=== PATIENT | female | born 1960 | race Caucasian/White ===

== ENCOUNTER 2020-02-04 10:46 | Inpatient (IN) | payer MEDICARE ==
[~2020-02-04] VITALS: Ht 162.6 cm; Wt 111.0 kg
[2020-02-04] MEDS ORDERED: aspirin 81mg tab.chew PO ONE (11:25)
--- NOTE | 2020-02-04 11:30 | NUR ---
To CT scan via w/c.
[2020-02-04 11:37] LABS: LYMPHOCYTES # (AUTO) 1.8 X10'3 (1.1-4.8)
[2020-02-04 11:39] LABS: BASOPHILS # (AUTO) 0.1 X10'3 (0-0.2); BASOPHILS % (AUTO) 0.7 % (0-1); EOSINOPHILS # (AUTO) 0.1 X10'3 (0-0.9); EOSINOPHILS % (AUTO) 0.7 % (0-6); HEMATOCRIT 50.9 % (35.0-45.0); LYMPHOCYTES % (AUTO) 19.1 % (21-51); MEAN CORPUSCULAR HEMOGLOBIN 31.7 PG (27.0-31.0); MEAN CORPUSCULAR HGB CONC 33.5 g/dL (33.0-36.5); MEAN CORPUSCULAR VOLUME 94.6 FL (78-98); MEAN PLATELET VOLUME 8.1 FL (7.4-10.4); MONOCYTES # (AUTO) 0.4 X10'3 (0-0.9); MONOCYTES % (AUTO) 3.7 % (2-12); NEUTROPHILS # (AUTO) 7.3 X10'3 (1.8-7.7); NEUTROPHILS % (AUTO) 75.8 % (42-75); PLATELET COUNT 378 X10'3 (140-440); RED BLOOD COUNT 5.38 X10'6 (4.20-5.60); RED CELL DISTRIBUTION WIDTH 15.1 % (11.5-14.5); WHITE BLOOD COUNT 9.7 X10'3 (4.5-11.0)
--- NOTE | 2020-02-04 11:45 | NUR ---
Return from CT scan, via w/c
[2020-02-04 11:48] LABS: ALANINE AMINOTRANSFERASE 19 U/L (12-78); ALKALINE PHOSPHATASE 108 IU/L (46-116); ANION GAP 10 (8-16); ASPARTATE AMINO TRANSFERASE 19 U/L (10-37); BILIRUBIN,TOTAL 0.6 MG/DL (0.1-1.0); BLOOD UREA NITROGEN 13 MG/DL (7-18); BUN/CREATININE RATIO 10.1 (6.6-38.0); CALCIUM 10.4 MG/DL (8.5-10.1); CHLORIDE 104 MMOL/L (99-107); CREATININE 1.29 MG/DL (0.40-0.90); GLUCOSE 137 MG/DL (70-104); POTASSIUM 4.4 MMOL/L (3.5-5.1); SODIUM 137 MMOL/L (135-145); TOTAL CARBON DIOXIDE 22.7 MMOL/L (24-32); TOTAL PROTEIN 8.1 G/DL (6.4-8.2); eGFR 42 ML/MIN
[2020-02-04] MEDS ORDERED: iohexol 350MG/ML 100ml bottle IV ONE (13:19)
--- NOTE | 2020-02-04 13:25 | NUR ---
Pt transported back to CT scan for CTA. Transported via gurney with the side rails raised.
[2020-02-04] MEDS ORDERED: IBUP-1985 PO (13:54)
[2020-02-04] MEDS ORDERED: LEVO112T5 PO (13:54)
[2020-02-04] MEDS ORDERED: SERT100T10 PO (13:54)
[2020-02-04] MEDS ORDERED: LISI-600 PO (13:54)
[2020-02-04] MEDS ORDERED: pneumococcal 23-VAL P-sac vacc 25 mcg/0.5ml vial IMVAC ONE (14:10)
[2020-02-04] MEDS ORDERED: potassium CL 10mEq/100ml bag 100 ML IV PRN ×2 (14:30)
[2020-02-04] MEDS ORDERED: magnesium Cl slow-release 64mg tablet PO PRN (14:30)
[2020-02-04] MEDS ORDERED: magnesium hydroxide 30ml (MOM) UD suspension PO PRN (14:30)
[2020-02-04] MEDS ORDERED: bisacodyl 10mg suppository rectal RC PRN (14:30)
[2020-02-04] MEDS ORDERED: diphenhydrAMINE 25mg capsule PO PRN (14:30)
[2020-02-04] MEDS ORDERED: ondansetron/PF 4mg/2ml inj IV PRN (14:30)
[2020-02-04] MEDS ORDERED: acetaminophen 650mg rectal suppository RC PRN (14:30)
[2020-02-04] MEDS ORDERED: potassium Cl 20 mEq SR tablet PO PRN ×2 (14:30)
[2020-02-04] MEDS ORDERED: magnesium 2GM in 50ml NS 50 ML IV PRN (14:30)
[2020-02-04] MEDS ORDERED: morphine 2 MG/ML inj. syringe IV PRN ×2 (14:30)
[2020-02-04] MEDS ORDERED: HYDROcodone/acetaminophen 10/325mg tab PO PRN (14:30)
[2020-02-04] MEDS ORDERED: mag hydrox/Alum hydrox/simeth 30ml oral suspension PO PRN (14:30)
[2020-02-04] MEDS ORDERED: acetaminophen 325mg tablet PO PRN (14:30)
[2020-02-04] MEDS ORDERED: magnesium 4gm in 100ml NS 100 ML IV PRN (14:30)
[2020-02-04] MEDS ORDERED: HYDROcodone/acetaminophen 5mg/325mg tablet PO PRN (14:30)
[2020-02-04] MEDS ORDERED: atorvastatin 20mg tablet PO SCH (14:30)
[2020-02-04 14:58] LABS: CLARITY,URINE CLOUDY (Clear); COLOR,URINE YELLOW (Yellow); GLUCOSE, URINE NEGATIVE (Neg); KETONES,URINE NEGATIVE (Neg); LEUKOCYTE ESTERASE ,URINE NEGATIVE (Neg); NITRITES, URINE POSITIVE (Neg); OCCULT BLOOD,URINE TRACE-INTACT (Neg); PH,URINE 5.5 (4.8-8.0); PROTEIN,URINE NEGATIVE (Neg); UROBILINOGEN,URINE 0.2 E.U/dL (0.2-1.0)
[2020-02-04 14:59] LABS: UA COLLECTION TYPE CLN CATCH MIDSTREAM
[2020-02-04 15:03] LABS: BACTERIA,URINE 4+ /HPF (Neg); MUCUS STRANDS FEW /LPF (Neg); SQUAMOUS EPITHELIAL CELL,UR MANY /LPF (FEW)
[2020-02-04 15:04] LABS: HYALINE CASTS 0-3 /LPF (NEGATIVE); RBC,URINE 0-2 /HPF (0-2); WBC,URINE 0-4 /HPF (0-4)
[2020-02-04 15:12] LABS: URINE AMPHETAMINE SCREEN NEGATIVE (Neg); URINE BARBITUATE SCREEN NEGATIVE (Neg); URINE BENZODIAZEPINES SCREEN NEGATIVE (Neg); URINE CANNABINOID SCREEN POSITIVE (Neg); URINE COCAINE SCREEN NEGATIVE (Neg); URINE METHADONE SCREEN NEGATIVE (Neg); URINE OPIATE SCREEN NEGATIVE (Neg); URINE PHENCYCLIDINE SCREEN NEGATIVE (Neg)
[2020-02-04 15:28] LABS: CHOL/HDL RATIO 6.2 (0.00-4.99); CHOLESTEROL 261 MG/DL (0-200); HDL CHOLESTEROL 42 MG/DL (35-60); HEMOGLOBIN A1C 5.7 % (4.5-6.2); LDL CHOLESTEROL 195 MG/DL (50-100); TRIGLYCERIDES 80 MG/DL (20-135)
[2020-02-04 17:00] VITALS: BP 185/70
[2020-02-04] MEDS: normal saline 1000ml 1,000 ML IV SCH (17:14)
--- NOTE | 2020-02-04 17:31 | NUR ---
pathology lab technician in room at time of attempt to administer pneumonia vaccine, patient wants vaccine at a later time.
[2020-02-04 18:00] VITALS: BP 178/114
--- NOTE | 2020-02-04 18:43 | NUR ---
Problems reprioritized. Patient report given, questions answered & plan of care reviewed with Vanessa GARCIA.
--- NOTE | 2020-02-04 18:43 | NUR ---
Patient in room PCU 3020. I have received report from Haeven GARCIA and had the opportunity to ask questions and assume patient care.
--- NOTE | 2020-02-04 19:35 | NUR ---
Pagebarbara PALOMO about 11 beat of PVC's. Back to Afib/Aflutter controlled rate.
[2020-02-04] MEDS: K and/or MAG REPLACEMENT MC SCH (19:54)
[2020-02-04] MEDS ORDERED: heparin, porcine 5000 units/ml vial SQ SCH (20:00)
[2020-02-04 22:00] VITALS: BP 149/107
[2020-02-04] MEDS ORDERED: atorvastatin 20mg tablet PO ONE (23:35)
[2020-02-04] MEDS: clopidogrel 75mg tablet PO SCH (23:51)
[2020-02-05] MEDS: CefTRIAXone/D5W-Rocephin 1gm 50 ML IV SCH ×2 (00:34→22:25)
[2020-02-05 02:00] VITALS: BP 186/91
[2020-02-05] MEDS: normal saline 1000ml 1,000 ML IV SCH ×2 (05:20→21:27)
[2020-02-05 06:00] VITALS: BP 175/90
[2020-02-05 06:00] LABS: BASOPHILS # (AUTO) 0.1 X10'3 (0-0.2); EOSINOPHILS # (AUTO) 0.2 X10'3 (0-0.9); EOSINOPHILS % (AUTO) 1.8 % (0-6); HEMOGLOBIN 15.8 g/dl (12.0-16.0); LYMPHOCYTES # (AUTO) 2.4 X10'3 (1.1-4.8); MEAN CORPUSCULAR HEMOGLOBIN 31.6 PG (27.0-31.0); MEAN CORPUSCULAR HGB CONC 33.6 g/dL (33.0-36.5); MEAN CORPUSCULAR VOLUME 93.9 FL (78-98); MEAN PLATELET VOLUME 7.8 FL (7.4-10.4); MONOCYTES # (AUTO) 0.6 X10'3 (0-0.9); MONOCYTES % (AUTO) 6.8 % (2-12); NEUTROPHILS # (AUTO) 5.6 X10'3 (1.8-7.7); NEUTROPHILS % (AUTO) 63.4 % (42-75); PLATELET COUNT 309 X10'3 (140-440); RED CELL DISTRIBUTION WIDTH 14.9 % (11.5-14.5); WHITE BLOOD COUNT 8.9 X10'3 (4.5-11.0)
--- NOTE | 2020-02-05 06:20 | NUR ---
Patient in room PCU 3020. I have received report from [facility] and had the opportunity to ask questions and assume patient care.
--- NOTE | 2020-02-05 06:44 | NUR ---
Problems reprioritized. Patient report given, questions answered & plan of care reviewed with Jaquelin GARCIA.
[2020-02-05 06:46] LABS: ALANINE AMINOTRANSFERASE 14 U/L (12-78); ALBUMIN 3.5 G/DL (3.4-5.0); ALKALINE PHOSPHATASE 96 IU/L (46-116); ANION GAP 9 (8-16); ASPARTATE AMINO TRANSFERASE 17 U/L (10-37); BILIRUBIN,TOTAL 0.5 MG/DL (0.1-1.0); BLOOD UREA NITROGEN 12 MG/DL (7-18); BUN/CREATININE RATIO 11.4 (6.6-38.0); CALCIUM 10.4 MG/DL (8.5-10.1); CHLORIDE 107 MMOL/L (99-107); CREATININE 1.05 MG/DL (0.40-0.90); GLUCOSE 91 MG/DL (70-104); MAGNESIUM 2.3 MG/DL (1.5-2.4); PHOSPHORUS 3.1 MG/DL (2.3-4.5); POTASSIUM 4.1 MMOL/L (3.5-5.1); SODIUM 139 MMOL/L (135-145); TOTAL CARBON DIOXIDE 23.3 MMOL/L (24-32); TOTAL PROTEIN 7.1 G/DL (6.4-8.2); eGFR 53 ML/MIN
[2020-02-05] MEDS: K and/or MAG REPLACEMENT MC SCH ×2 (07:10→19:32)
--- NOTE | 2020-02-05 07:50 | NUR ---
PAGER ID: [phone] MESSAGE: Jaquelin Valerio on PCU, for Ms. Killian in 3020, pt allowed permissive HTN, order for lisinopril this am, shall we hold it? AM BP was 175/90 thank you #[phone] or [phone]
[2020-02-05] MEDS: acetaminophen 325mg tablet PO PRN ×2 (09:46→15:33)
[2020-02-05] MEDS: aspirin 81mg tablet.DR PO SCH (09:47)
[2020-02-05] MEDS: clopidogrel 75mg tablet PO SCH (09:47)
[2020-02-05] MEDS: levoTHYROXINE 112mcg tablet PO SCH (09:47)
[2020-02-05] MEDS: atorvastatin 20mg tablet PO SCH (09:47)
[2020-02-05] MEDS: sertraline 50mg tablet PO SCH (09:48)
[2020-02-05] MEDS: apixaban 5mg tablet PO SCH ×2 (09:48→19:34)
[2020-02-05 11:00] VITALS: BP 165/100
[2020-02-05] MEDS ORDERED: iohexol 300mg/ml 100ml inj. ONE (11:07)
--- NOTE | 2020-02-05 12:13 | NUR ---
PAGER ID: [phone] MESSAGE: Jaquelin Valerio on U, for Ms. Killian in 4020, last BP was 165/100, would you like the lisinopril to be given? #[phone], thank you Addendum: 02/05/20 at 1215 by Jaquelin Scruggs RN MD devonte corado. Addendum: 02/05/20 at 1215 by Jaquelin Scruggs RN caden Calero to give lisinopril
[2020-02-05] MEDS: lisinopril 20mg tablet PO SCH (12:45)
[2020-02-05 18:00] VITALS: BP 144/74
--- NOTE | 2020-02-05 18:08 | NUR ---
Problems reprioritized. Patient report given, questions answered & plan of care reviewed with Tawnya.
[2020-02-05] MEDS: lactobacillus rhamnosus 10,000 MMU CELLS/CAPSULE PO SCH (19:33)
[2020-02-05 22:00] VITALS: BP 146/89
[2020-02-06 02:00] VITALS: BP 132/63
[2020-02-06 06:00] VITALS: BP 126/90
--- NOTE | 2020-02-06 06:00 | NUR ---
Patient in room PCU 3020. I have received report from JOSE Cordova and had the opportunity to ask questions and assume patient care.
--- NOTE | 2020-02-06 06:19 | NUR ---
Problems reprioritized. Patient report given, questions answered & plan of care reviewed with JOSE Pavon.
[2020-02-06] MEDS: normal saline 1000ml 1,000 ML IV SCH (06:26)
[2020-02-06 07:49] LABS: BASOPHILS # (AUTO) 0.1 X10'3 (0-0.2); BASOPHILS % (AUTO) 0.6 % (0-1); EOSINOPHILS # (AUTO) 0.1 X10'3 (0-0.9); EOSINOPHILS % (AUTO) 1.5 % (0-6); HEMATOCRIT 44.1 % (35.0-45.0); HEMOGLOBIN 15.2 g/dl (12.0-16.0); LYMPHOCYTES # (AUTO) 1.7 X10'3 (1.1-4.8); LYMPHOCYTES % (AUTO) 18.5 % (21-51); MEAN CORPUSCULAR HGB CONC 34.4 g/dL (33.0-36.5); MEAN CORPUSCULAR VOLUME 92.9 FL (78-98); MEAN PLATELET VOLUME 7.9 FL (7.4-10.4); MONOCYTES # (AUTO) 0.7 X10'3 (0-0.9); MONOCYTES % (AUTO) 7.3 % (2-12); NEUTROPHILS # (AUTO) 6.8 X10'3 (1.8-7.7); NEUTROPHILS % (AUTO) 72.1 % (42-75); PLATELET COUNT 327 X10'3 (140-440); RED BLOOD COUNT 4.75 X10'6 (4.20-5.60); RED CELL DISTRIBUTION WIDTH 14.7 % (11.5-14.5); WHITE BLOOD COUNT 9.5 X10'3 (4.5-11.0)
[2020-02-06 07:57] LABS: ALANINE AMINOTRANSFERASE 16 U/L (12-78); ALBUMIN 3.3 G/DL (3.4-5.0); ALBUMIN/GLOBULIN RATIO 0.9 (1.1-1.5); ALKALINE PHOSPHATASE 93 IU/L (46-116); ANION GAP 5 (8-16); ASPARTATE AMINO TRANSFERASE 16 U/L (10-37); BILIRUBIN,TOTAL 0.5 MG/DL (0.1-1.0); BLOOD UREA NITROGEN 12 MG/DL (7-18); BUN/CREATININE RATIO 10.3 (6.6-38.0); CALCIUM 9.8 MG/DL (8.5-10.1); CHLORIDE 108 MMOL/L (99-107); CREATININE 1.17 MG/DL (0.40-0.90); GLUCOSE 89 MG/DL (70-104); MAGNESIUM 2.3 MG/DL (1.5-2.4); PHOSPHORUS 3.3 MG/DL (2.3-4.5); POTASSIUM 4.4 MMOL/L (3.5-5.1); SODIUM 139 MMOL/L (135-145); TOTAL PROTEIN 6.8 G/DL (6.4-8.2); eGFR 47 ML/MIN
[2020-02-06] MEDS: K and/or MAG REPLACEMENT MC SCH (08:00)
[2020-02-06 08:39] VITALS: BP_SYST 113
[2020-02-06] MEDS: aspirin 81mg tablet.DR PO SCH (08:39)
[2020-02-06] MEDS: clopidogrel 75mg tablet PO SCH (08:39)
[2020-02-06] MEDS: lisinopril 20mg tablet PO SCH (08:39)
[2020-02-06] MEDS: apixaban 5mg tablet PO SCH (08:40)
[2020-02-06] MEDS: lactobacillus rhamnosus 10,000 MMU CELLS/CAPSULE PO SCH (08:41)
[2020-02-06] MEDS: atorvastatin 20mg tablet PO SCH (08:41)
[2020-02-06] MEDS: levoTHYROXINE 112mcg tablet PO SCH (08:42)
[2020-02-06] MEDS: sertraline 50mg tablet PO SCH (08:42)
[2020-02-06] MEDS ORDERED: APIX5TAB3 PO (10:49)
[2020-02-06] MEDS ORDERED: ATOR40TA72 PO (12:23)
--- NOTE | 2020-02-06 12:30 | NUR ---
Patient discharged. All instructions given both verbally and written. Called patient's prescriptions to [facility]. Per Maranda Charge nurse, the statin was not included with discharge medications. It was added after the Stroke Nurse Li Valladares called us. This Prescription was Lipitor 80 mg po. It was sent digitally. I will call the patient to let her know that there will be another medication for her to [facility]. All patient personal items taken with the patient. The PIV was removed and hemostasis achieved. The catheter was intact. Patient was alert and oriented and in stable condition when she left.
--- NOTE | 2020-02-09 14:51 | NUR ---
Case Management DC follow up: LMVM post DC status, questions, concerns
== END 2020-02-06 12:20 | disposition home health service (06) | DRG 64 ==
LOC: ER 10:47 → ED HOLD 14:26 → PCU 3S 16:08
PROVIDERS: ADMIT Family Medicine; ATTEND Internal Medicine
PROC: 3E0234Z Introduction of Serum, Toxoid and Vaccine into Muscle, Percutaneous Approach (ICD-10-PCS; principal; 2020-02-04)
PROC: B3251ZZ Computerized Tomography (CT Scan) of Bilateral Common Carotid Arteries using Low Osmolar Contrast (ICD-10-PCS; 2020-02-04)
PROC: B32G1ZZ Computerized Tomography (CT Scan) of Bilateral Vertebral Arteries using Low Osmolar Contrast (ICD-10-PCS; 2020-02-04)
PROC: B3281ZZ Computerized Tomography (CT Scan) of Bilateral Internal Carotid Arteries using Low Osmolar Contrast (ICD-10-PCS; 2020-02-04)
DX: I63.9 Cerebral infarction, unspecified (principal); N17.0 Acute kidney failure with tubular necrosis; N39.0 Urinary tract infection, site not specified; E04.1 Nontoxic single thyroid nodule; E03.9 Hypothyroidism, unspecified; E78.00 Pure hypercholesterolemia, unspecified; E78.5 Hyperlipidemia, unspecified; E86.0 Dehydration; F12.10 Cannabis abuse, uncomplicated; F17.210 Nicotine dependence, cigarettes, uncomplicated; F32.9 Major depressive disorder, single episode, unspecified; I10 Essential (primary) hypertension; H53.8 Other visual disturbances; I48.0 Paroxysmal atrial fibrillation; J44.9 Chronic obstructive pulmonary disease, unspecified; R91.1 Solitary pulmonary nodule; Z79.01 Long term (current) use of anticoagulants; Z79.82 Long term (current) use of aspirin; Z79.890 Hormone replacement therapy; Z79.899 Other long term (current) drug therapy; Z80.42 Family history of malignant neoplasm of prostate; Z82.3 Family history of stroke; Z90.710 Acquired absence of both cervix and uterus; Z23 Encounter for immunization; Z98.51 Tubal ligation status; Z71.51 Drug abuse counseling and surveillance of drug abuser; Z71.6 Tobacco abuse counseling; I69.398 Other sequelae of cerebral infarction
CPT/HCPCS: 36415; 70450; 70496; 70498; 70551; 71045; 71260; 76536; 76775; 80053; 80061; 80305; 81001; 82948; 83036; 83735; 84100; 84439; 84443; 85025; 85610; 85651; 86885; 86900; 86901; 87077; 87081; 87088; 87186; 90732; 92508; 92616; 93005; 93306; 93880; 97116; 97161; 97530; 99285; G0378; J0696; J1644; J7030; Q9967

== ENCOUNTER 2023-05-15 18:17 | Emergency (ER) | payer MEDICARE ==
[~2023-05-15] VITALS: Ht 165.1 cm; Wt 95.5 kg
[~2023-05-15 18:17] MED LIST: APIX5TAB3 PO; ATOR40TA72 PO; LEVO112T5 PO; LISI20TA28 PO; SERT-434 PO
[2023-05-15 18:20] VITALS: BP 146/89; PULSE 94; TEMP 98.3; O2SAT 96
[2023-05-15 20:04] LABS: BILIRUBIN,URINE NEGATIVE (Neg); CLARITY,URINE SLIGHTLY CLOUDY (Clear); COLOR,URINE YELLOW (Yellow); GLUCOSE, URINE NEGATIVE (Neg); KETONES,URINE NEGATIVE (Neg); LEUKOCYTE ESTERASE ,URINE NEGATIVE (Neg); NITRITES, URINE POSITIVE (Neg); OCCULT BLOOD,URINE TRACE-INTACT (Neg); PH,URINE 5.5 (4.8-8.0); PROTEIN,URINE NEGATIVE (Neg); UROBILINOGEN,URINE 0.2 E.U/dL (0.2-1.0)
[2023-05-15 20:15] LABS: UA COLLECTION TYPE CLN CATCH MIDSTREAM
[2023-05-15 20:18] LABS: BACTERIA,URINE 4+ /HPF (Neg); SQUAMOUS EPITHELIAL CELL,UR FEW /LPF (FEW); WBC,URINE 0-4 /HPF (0-4)
[2023-05-15] MEDS ORDERED: ondansetron 4mg rapidly disintigrating tab PO STA (20:52)
[2023-05-15] MEDS ORDERED: morphine 2 MG/ML inj. syringe IM STA (20:52)
[2023-05-15] MEDS ORDERED: OXYC-145 PO (21:48)
[2023-05-15] MEDS ORDERED: NITR100C6 PO (21:49)
[2023-05-15] MEDS ORDERED: nitrofuran monohydrate/nitrofuran macrocrysal 100 MG (MacroBID) capsule PO ONE (21:50)
[2023-05-15] MEDS ORDERED: oxyCODONE/APAP 5-325mg tablet PO STA (22:17)
[2023-05-15 22:36] VITALS: RESP 18
== END 2023-05-15 22:50 | disposition home or self-care (01) ==
LOC: ER 18:17
DX: S32.058A Other fracture of fifth lumbar vertebra, initial encounter for closed fracture (principal); S32.048A Other fracture of fourth lumbar vertebra, initial encounter for closed fracture; X58.XXXA Exposure to other specified factors, initial encounter; Y93.89 Activity, other specified; Y92.89 Other specified places as the place of occurrence of the external cause; Y99.8 Other external cause status
CPT/HCPCS: 72131; 81001; 87077; 87088; 87186; 96372; 99285; J2270